=== PATIENT | male | born 1975 | race Caucasian/White ===

== ENCOUNTER 2022-03-08 10:44 | Emergency (ER) | payer SELFPAY ==
[~2022-03-08] VITALS: Ht 170 cm; Wt 82.0 kg
--- NOTE | 2022-03-08 11:16 | ED General ---
General Chief Complaint: Facial Problems Stated Complaint: LEFT EYE AND FACIAL DROOP Nursing Triage Note: PT PRESENTS TO ED VIA POV FROM CLINIC FOR COMPLAINTS OF L SIDED FACIAL DROOP SINCE YESTERDAY MORNING. PT ALSO REPORTS INTERMITTENT R HAND WEAKNESS THAT HAS BEEN GOING ON FOR YEARS. Source of Information: Patient Exam Limitations: No Limitations History of Present Illness Date Seen by Provider: Mar 08, 2022 Time Seen by Provider: 11:10 Initial Comments Patient was sent from the clinic for stroke like symptoms that started yesterday morning. Reports left sided facial droop and slow eyelid closing that started yesterday. Reports that he has been having increasing watering to left eye. Denies arm or leg weakness. No history of stroke or recent illness that he is aware of. No history of similar symptoms in the past. Timing/Duration: 1-2 Days Severity: Moderate Associated Systoms: No Chest Pain, No Cough, No Diaphoresis, No Fever/Chills; Headaches; No Nausea/Vomiting, No Rash, No Shortness of Air, No Syncope, No Weakness Allergies and Home Medications Allergies Coded Allergies: No Known Drug Allergies (Unverified , 03/08/22) Patient Home Medication List Home Medication List Reviewed: Yes Prednisone (Prednisone) 20 Mg Tab, 60 MG PO DAILY Prescribed by: Gabriela Noonan on 03/08/22 1241 Review of Systems Review of Systems Constitutional: No chills, No diaphoresis, No dizziness, No fever EENTM: tearing (left); No ear discharge, No ear pain, No blurred vision, No double vision, No eye pain, No vision loss, No hoarseness, No mouth pain, No nose congestion, No throat pain Respiratory: No cough, No short of breath, No stridor, No wheezing Cardiovascular: No chest pain, No palpitations Gastrointestinal: No abdominal pain, No diarrhea, No nausea, No vomiting Genitourinary: No dysuria, No frequency Musculoskeletal: No back pain, No muscle pain Skin: No pruritus, No rash Psychiatric/Neurological: Headache; Denies Numbness, Denies Paresthesia, Denies Weakness All Other Systems Reviewed Negative Unless Noted: Yes Past Qbrhgbj-Gqjxbr-Jyxply Hx Patient Social History Tobacco Use?: No Substance use?: No Alcohol Use?: No Pt feels they are or have been: No Past Medical History Surgery/Hospitalization HX: sx: l wrist Family Medical History Reviewed Nursing Family Hx Physical Exam Vital Signs Vital Signs - First Documented 03/08/22 10:50 Temp 36.6 Pulse 68 Resp 18 B/P (MAP) 192/107 (135) Pulse Ox 97 Capillary Refill : Less Than 3 Seconds Height, Weight, BMI Height: '" Weight: lbs. oz. kg; 28.00 BMI Method: General Appearance: No Apparent Distress, WD/WN Eyes: Bilateral Eye Normal Inspection, Bilateral Eye PERRL, Bilateral Eye Other (tearing left eye) HEENT: PERRL/EOMI, TMs Normal, Normal ENT Inspection, Pharynx Normal, Moist Mucous Membranes; No Pharyngeal Erythema Neck: Full Range of Motion, Normal Inspection, Non Tender, Supple Respiratory: Chest Non Tender, Lungs Clear, Normal Breath Sounds, No Accessory Muscle Use, No Respiratory Distress Cardiovascular: Regular Rate, Rhythm, No Edema Gastrointestinal: Normal Bowel Sounds, No Organomegaly, Non Tender, Soft Back: Normal Inspection, No CVA Tenderness Extremity: Normal Capillary Refill, Normal Inspection, Normal Range of Motion, Non Tender, No Calf Tenderness Neurologic/Psychiatric: Alert, Oriented x3, Facial Droop (left sided facial droop, 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) Skin: Normal Color, Warm/Dry Progress/Results/Core Measures Suspected Sepsis SIRS Temperature: Pulse: 68 Respiratory Rate: 18 Laboratory Tests 03/08/22 11:50: White Blood Count 6.6 Blood Pressure 192 /107 Mean: 135 Laboratory Tests 03/08/22 11:50: Creatinine 0.95, Platelet Count 246, Total Bilirubin 0.7 Results/Orders Lab Results Laboratory Tests Test 03/08/22 11:50 Range/Units White Blood Count 6.6 4.3-11.0 10^3/uL Red Blood Count 5.53 H 4.30-5.52 10^6/uL Hemoglobin 16.3 13.3-17.7 g/dL Hematocrit 46 40-54 % Mean Corpuscular Volume 84 80-99 fL Mean Corpuscular Hemoglobin 30 25-34 pg Mean Corpuscular Hemoglobin Concent 35 32-36 g/dL Red Cell Distribution Width 11.3 10.0-14.5 % Platelet Count 246 130-400 10^3/uL Mean Platelet Volume 9.2 9.0-12.2 fL Immature Granulocyte % (Auto) 1 % Neutrophils (%) (Auto) 66 42-75 % Lymphocytes (%) (Auto) 23 12-44 % Monocytes (%) (Auto) 8 0-12 % Eosinophils (%) (Auto) 1 0-10 % Basophils (%) (Auto) 1 0-10 % Neutrophils # (Auto) 4.4 1.8-7.8 10^3/uL Lymphocytes # (Auto) 1.5 1.0-4.0 10^3/uL Monocytes # (Auto) 0.5 0.0-1.0 10^3/uL Eosinophils # (Auto) 0.1 0.0-0.3 10^3/uL Basophils # (Auto) 0.1 0.0-0.1 10^3/uL Immature Granulocyte # (Auto) 0.0 0.0-0.1 10^3/uL Sodium Level 141 135-145 MMOL/L Potassium Level 4.2 3.6-5.0 MMOL/L Chloride Level 107 98-107 MMOL/L Carbon Dioxide Level 21 21-32 MMOL/L Anion Gap 13 5-14 MMOL/L Blood Urea Nitrogen 16 7-18 MG/DL Creatinine 0.95 0.60-1.30 MG/DL Estimat Glomerular Filtration Rate 100 BUN/Creatinine Ratio 17 Glucose Level 110 H 70-105 MG/DL Calcium Level 9.1 8.5-10.1 MG/DL Corrected Calcium 8.9 8.5-10.1 MG/DL Total Bilirubin 0.7 0.1-1.0 MG/DL Aspartate Amino Transf (AST/SGOT) 37 H 5-34 U/L Alanine Aminotransferase (ALT/SGPT) 51 0-55 U/L Alkaline Phosphatase 80 40-136 U/L Troponin I < 0.028 <0.028 NG/ML Total Protein 7.1 6.4-8.2 GM/DL Albumin 4.3 3.2-4.5 GM/DL Serum Alcohol < 10 <10 MG/DL My Orders Orders - GABRIELA NOONAN APRN Ct Head Wo (03/08/22 11:16) Ed Iv/Invasive Line Start (03/08/22 11:16) Alcohol (03/08/22 11:16) Cbc With Automated Diff (03/08/22 11:16) Comprehensive Metabolic Panel (03/08/22 11:16) Accucheck Stat ONCE (03/08/22 11:16) Troponin I [place] (03/08/22 11:16) Ekg Tracing (03/08/22 11:16) Vital Signs/I&O 03/08/22 03/08/22 10:50 13:20 Temp 36.6 Pulse 68 60 Resp 18 16 B/P (MAP) 192/107 (135) 162/106 Pulse Ox 97 98 Capillary Refill : Less Than 3 Seconds Blood Pressure Mean: 135 Progress Note : Progress Note Initial exam appears to be Rinaldi's palsy. He has no extremity weakness. Will go ahead and obtain baseline labs at this time and obtain CT head. 1234: Spoke to patient and family in regards to labs and diagnosis of Rinaldi's palsy. Steroid treatment discussed. Reasons to return to the ER were discussed with patient and family in addition. Workup was unremarkable and exam is still consistent with Rinaldi's palsy. ECG Initial ECG Impression Date: Mar 08, 2022 Initial ECG Impression Time: 11:33 Initial ECG Rate: 64 Initial ECG Rhythm: Normal Sinus Initial ECG Impression: Normal Comment reviewed with Dr. Yeh Diagnostic Imaging Diagonstic Imaging: CT Plain Films/CT/US/NM/MRI: head Comments NAME: ANNE SINGER [facility] REC#: [id number] PT STATUS: DEP ER : [id number] PHYSICIAN: GABRIELA NOONAN APRN ADMIT DATE: 03/08/22/ER Signed Date of Exam:03/08/22 CT HEAD WO PROCEDURE: CT head without contrast. TECHNIQUE: Multiple contiguous axial images were obtained through the brain without the use of intravenous contrast. Auto Exposure Controls were utilized during the CT exam to meet ALARA standards for radiation dose reduction. INDICATION: Left-sided facial droop. Right hand weakness. COMPARISON: None. FINDINGS: No intracranial hemorrhage, mass effect, hydrocephalus, or extra-axial fluid collections. No CT evidence of a territorial infarction. Chronic appearing nasal bone fractures. Visualized paranasal sinuses and mastoids are clear. IMPRESSION: 1. No acute intracranial CT findings. 2. Chronic appearing nasal bone fractures. Recommend correlation with clinical findings. Dictated by: Dictated on workstation # [id number] Dict: 03/08/22 1149 Trans: 03/08/22 1710 [id number] Interpreted by: GUSTABO WAGNER MD Electronically signed by: GUSTABO WAGNER MD 03/08/22 1710 Departure Impression Primary Impression: Rinaldi's palsy Disposition: 01 HOME, SELF-CARE Condition: Stable Departure-Patient Inst. Decision time for Depature: 12:37 Referrals: [facility] (PCP/Family) Primary Care Physician Patient Instructions: Rinaldi's Palsy (DC) Add. Discharge Instructions: 1. Home and rest. 2. Push fluids. 3. Alternate Tylenol/Ibuprofen as needed for pain. 4. Follow up with PCP as needed. 5. Start Prednisone and take as directed until finished. Try and take this medication as early in the day as possible and with food to prevent stomach upset. 6. Return here if worse or concerns. All discharge instructions reviewed with patient and/or family. Voiced understanding. Scripts Prednisone (Prednisone) 20 Mg Tab 60 MG PO DAILY for 5 Days, #15 TAB Prov: GABRIELA NOONAN APRN 03/08/22 GABRIELA NOONAN APRN Mar 08, 2022 11:16
[2022-03-08 11:57] LABS: BASOPHILS # (AUTO) 0.1 10^3/uL (0.0-0.1); BASOPHILS % (AUTO) 1 % (0-10); EOSINOPHILS # (AUTO) 0.1 10^3/uL (0.0-0.3); EOSINOPHILS % (AUTO) 1 % (0-10); HEMATOCRIT 46 % (40-54); HEMOGLOBIN 16.3 g/dL (13.3-17.7); LYMPHOCYTES # (AUTO) 1.5 10^3/uL (1.0-4.0); LYMPHOCYTES % (AUTO) 23 % (12-44); MEAN CORPUSCULAR HEMOGLOBIN 30 pg (25-34); MEAN CORPUSCULAR HGB CONC 35 g/dL (32-36); MEAN CORPUSCULAR VOLUME 84 fL (80-99); MEAN PLATELET VOLUME 9.2 fL (9.0-12.2); MONOCYTES # (AUTO) 0.5 10^3/uL (0.0-1.0); MONOCYTES % (AUTO) 8 % (0-12); NEUTROPHILS # (AUTO) 4.4 10^3/uL (1.8-7.8); NEUTROPHILS % (AUTO) 66 % (42-75); PLATELET COUNT 246 10^3/uL (130-400); WHITE BLOOD COUNT 6.6 10^3/uL (4.3-11.0)
[2022-03-08 12:11] LABS: ALBUMIN 4.3 GM/DL (3.2-4.5); CHLORIDE 107 MMOL/L (98-107); POTASSIUM 4.2 MMOL/L (3.6-5.0); SODIUM 141 MMOL/L (135-145)
[2022-03-08 12:12] LABS: CALCIUM 9.1 MG/DL (8.5-10.1)
[2022-03-08 12:14] LABS: GLUCOSE 110 MG/DL (70-105); TOTAL PROTEIN 7.1 GM/DL (6.4-8.2)
[2022-03-08 12:15] LABS: BILIRUBIN,TOTAL 0.7 MG/DL (0.1-1.0); CARBON DIOXIDE 21 MMOL/L (21-32)
[2022-03-08 12:17] LABS: ALKALINE PHOSPHATASE 80 U/L (40-136); CREATININE SERUM 0.95 MG/DL (0.60-1.30); GFR ESTIMATED 100
[2022-03-08 12:19] LABS: BUN/CREATININE RATIO 17
[2022-03-08 12:20] LABS: ALANINE AMINOTRANSFERASE 51 U/L (0-55)
--- NOTE | 2022-03-08 12:27 | Diagnostic Imaging Report ---
PROCEDURE: CT head without contrast. TECHNIQUE: Multiple contiguous axial images were obtained through the brain without the use of intravenous contrast. Auto Exposure Controls were utilized during the CT exam to meet ALARA standards for radiation dose reduction. INDICATION: Left-sided facial droop. Right hand weakness. COMPARISON: None. FINDINGS: No intracranial hemorrhage, mass effect, hydrocephalus, or extra-axial fluid collections. No CT evidence of a territorial infarction. Chronic appearing nasal bone fractures. Visualized paranasal sinuses and mastoids are clear. IMPRESSION: 1. No acute intracranial CT findings. 2. Chronic appearing nasal bone fractures. Recommend correlation with clinical findings. Dictated by: Dictated on workstation # [id number]
[2022-03-08] MEDS ORDERED: PRD20T PO (12:41)
[2022-03-08 13:20] VITALS: BP 162/106
== END 2022-03-08 13:20 | disposition home or self-care (01) ==
LOC: ER 10:46
DX: G51.0 Bell's palsy (principal); Z28.310 Unvaccinated for COVID-19
CPT/HCPCS: 70450; 80053; 84484; 85025; 99284; G0480; 36415; 80320; 93005